=== PATIENT | male | born 2000 | race Two or more races ===

== ENCOUNTER 2024-11-21 07:44 | Emergency (ER) | payer MEDICAID, SELFPAY ==
[2024-11-21 07:52] VITALS: BP 125/83; PULSE 71; RESP 16; TEMP 36.6; O2SAT 97; BMI 23.5
--- NOTE | 2024-11-21 07:59 | EDNOTE_ITS ---
<Statement entered by Anna Gale MD - 11/22/24 12:05> As co-signing physician, I was present and available for consult prn. I concur with the plan and care as documented by the midlevel provider. ED Dental RME/HPI General Chief complaint: Dental/Oral/Throat Stated complaint: feels like throat is swollen, trouble swallowing Time Seen by Provider: 11/21/24 07:46 Arrival date/time: 11/21/24 07:44 24-year-old male with no significant medical problems presents emergency department complaints of throat swelling patient reports pain with swallowing patient for symptoms ongoing since this morning patient reports no fever nausea or vomiting Limitations: no limitations Related Data Previous Rx's ?Medication ?Instructions ?Recorded ibuprofen 600 mg tablet 600 mg PO Q6H #30 tabs 02/13 amoxicillin 875 mg-potassium 1 tab PO BID 7 days #14 t abs 11/21/24 clavulanate 125 mg tablet ibuprofen 600 mg tablet 600 mg PO Q6H #30 tabs 11/21 prednisone 10 mg tablet 30 mg (3 x 10 mg) PO BID 3 d ays 11/21/24 #18 tabs Allergies Allergy/AdvReac Type Severity Reaction Status Date / Time No Known Allergies Allergy Unverified 02/14/24 16:36 Review of Systems Review of Systems Systems Reviewed: All systems reviewed, normal except as documented Constitutional Constitutional: Reports system reviewed and no additional complaints, except as documented, Denies fever(s) and Denies headache(s) Eyes Eyes: Reports system reviewed and no additional complaints, except as documented and Denies blurry vision ENT Ears, Nose, Mouth, and Throat: Reports system reviewed and no additional complaints, except as documented, Denies headache(s), Denies nasal congestion, Denies nasal discharge, Reports sore throat and Reports throat swelling Cardiovascular Cardiovascular: Reports system reviewed and no additional complaints, except as documented, Denies chest pain and Denies dyspnea Respiratory Respiratory: Reports system reviewed and no additional complaints, except as documented, Denies chest congestion, Denies cough and Denies dyspnea Gastrointestinal Gastrointestinal: Reports system reviewed and no additional complaints, except as documented and Denies abdominal pain Integumentary/Breasts Skin/Breast: Reports system reviewed and no additional complaints, except as documented and Denies rash Neurologic Neurologic: Reports system reviewed and no additional complaints, except as documented, Reports as per HPI and Denies headache(s) Allergic/Immunologic Allergic/Immunologic: Reports throat swelling Past Medical History Past Medical History NEUROLOGIC: Negative Neurological Disorders Social History SMOKING STATUS: Current every day smoker ED Exam General Limitations: Present no limitations General appearance: Present alert and in no apparent distress Head Head exam: Present atraumatic Eye Eye exam: Present normal appearance, PERRL and EOMI ENT ENT exam: Present mucous membranes moist Expanded ENT Exam Throat exam: Present tonsillar erythema and other (Uvula swelling); Absent tonsillomegaly, tonsillar exudate, R peritonsillar mass, L peritonsillar mass or muffled voice Neck Neck exam: Present normal inspection, full ROM and trachea midline Chest Chest inspection: Present normal inspection and symmetric chest wall rise Respiratory Respiratory exam: Present normal lung sounds bilaterally Cardiovascular Cardiovascular exam: Present regular rate, normal rhythm and normal heart sounds Abdominal Exam Abdominal exam: Present soft and normal bowel sounds Extremities Exam Extremities exam: Present normal inspection and full ROM Back Exam Back exam: Present normal inspection and full ROM Neurological Exam Neurological exam: Present alert, oriented X3 and CN II-XII intact Psychiatric Psychiatric exam: Present normal affect and normal mood Skin Skin exam: Present warm, dry, intact and normal color Course Quality Measures none Orders Category Date Time Status Dexamethasone Inj [Decadron Inj] Med 11/21/24 07:57 Discontinued 10 mg PO X1 ONE Vital Signs Vital signs: Vital Signs Temperature 97.8 F 11/21/24 07:52 Pulse Rate 71 11/21/24 07:52 Respiratory Rate 16 11/21/24 07:52 Blood Pressure 125/83 11/21/24 07:52 Pulse Oximetry (%) 97 11/21/24 07:52 Oxygen Delivery Method Room Air 11/21/24 07:52 O2 saturation 97% room air WNL Dental / Oral MDM Narrative MDM Narrative:: 24-year-old male with no significant medical problems presents emergency department complaints of throat swelling patient reports pain with swallowing patient for symptoms ongoing since this morning patient reports no fever nausea or vomiting On exam patient well-appearing patient does not appear ill or toxic patient does not appear to be acute distress On exam symptoms consistent with uvulitis Patient given dexamethasone Patient discharged with antibiotics and pain medication Patient no difficulty swallowing or breathing hemodynamically stable Patient discharged home in no distress to follow-up with primary care doctor in the next 24 to 48 hours and for any worsening symptoms to return to the ER immediately Patient data External records reviewed:: [facility] previous records Clinical information provided by:: patient Social determinants that could affect healthcare access:: none Patient has the following chronic illnesses:: None How is presenting disease/condition affected by chronic disease/condition?: no chronic disease Evaluation data The following diagnostics were reviewed and interpreted by me:: other (specify) (N/A) Lab and/or radiology exams considered but not ordered:: N/A Interpretation Summary: Consider not ordered Medications / Prescriptions Medications or Prescriptions considered but not ordered:: Given Medication administrations:: Medication Administration History Discontinued Medications Dexamethasone Sodium Phosphate (Dexamethasone Sod Phos Inj 10 Mg/Ml Vial) 10 mg PO X1 ONE Stop: 11/21/24 07:58 Last Admin: 11/21/24 08:06 Dose: 10 mg Documented By: SM Given Consultations Consultation(s) initiated? (list below): No Diagnosis Dental Differential Diagnosis: gingival abscess and other (Viral pharyngitis, streptococcal pharyngitis, uvulitis) Most likely diagnosis given after review of the tests above:: Pharyngitis Admission Indicated Admission indicated?: not indicated Admission Request Was there a request for admission?: No Disposition Plan Disposition Plan: Discharge Discharge Attestation Discharge Attestation: The patient and all family members were given an opportunity to ask questions and understood the discharge instructions. Discharge instructions specifically effects, indications for sooner follow up or return to the emergency department, and the expected course of current diagnosis. Patient condition: Stable Discharge Plan Plan Patient Disposition: HOME (Self Care) Disposition Comment: Stable Prescriptions/Referrals Prescriptions/Med Rec: New prednisone 10 mg tablet 30 mg PO BID 3 Days Qty: 18 0RF ibuprofen 600 mg tablet 600 mg PO Q6H Qty: 30 0RF amoxicillin-pot clavulanate 875-125 mg tablet 1 tab PO BID 7 Days Qty: 14 0RF No Action ibuprofen 600 mg tablet 600 mg PO Q6H Qty: 30 0RF Problem List Clinical Impression: Pharyngitis Patient/Caregiver Discharge Instructions Education Materials: Self-Care for Sore Throats Additional Instructions: Please follow up with your primary care doctor in the next 24-48hrs for any worsening symptoms return here immediately Print Language: P[place]in[place] Stand Alone Forms: Ale Award Info., Work/School Release, Patient Portal Info Letter PA/PASSPORT SUPPORT ASSOCIATE Supervising Physician PA/PASSPORT SUPPORT ASSOCIATE Supervising Physician: Dr. GALE
[2024-11-21] MEDS: DEXAMETHASONE SOD PHOS INJ 10 MG/ML VIAL PO (08:06)
== END 2024-11-21 08:10 | disposition home or self-care (01) ==
PROVIDERS: Emergency Provider Emergency Medicine
DX: J02.9 Acute pharyngitis, unspecified (principal)
CPT/HCPCS: 99282; J1100

== ENCOUNTER 2025-05-11 04:34 | Emergency (ER) | payer MEDICAID, SELFPAY ==
[2025-05-11 04:35] VITALS: BMI 19.5
[2025-05-11 05:36] VITALS: BP 142/92; PULSE 56; RESP 16; TEMP 36.7; O2SAT 98
--- NOTE | 2025-05-11 06:18 | PD.EDDENTL ---
ED Dental RME/HPI General Chief complaint: Dental/Oral/Throat Stated complaint: UPPER TOOTHACHE Time Seen by Provider: 05/11/25 06:14 Arrival date/time: 05/11/25 04:34 24-year-old male presents to the Emergency Department today for complaint of toothache patient reports left upper tooth pain ongoing x 2 to 3 days. Patient reports no fever nausea or vomiting no difficulty swallowing or breathing Limitations: no limitations Related Data Previous Rx's ?Medication ?Instructions ?Recorded ibuprofen 600 mg tablet 600 mg PO Q6H #30 tabs 02/14/24 ibuprofen 600 mg tablet 600 mg PO Q6H #30 tabs 11/21/24 amoxicillin 875 mg-potassium 1 tab PO BID 10 days #20 tabs 05/11/25 clavulanate 125 mg tablet ibuprofen 600 mg tablet 600 mg PO Q6H #30 tabs 05/11/25 Allergies Allergy/AdvReac Type Severity Reaction Status Date / Time No Known Allergies Allergy Unverified 02/14/24 16:36 Review of Systems Review of Systems Systems Reviewed: All systems reviewed, normal except as documented Constitutional Constitutional: Reports system reviewed and no additional complaints, except as documented, Denies fever(s) and Denies headache(s) Eyes Eyes: Reports system reviewed and no additional complaints, except as documented and Denies blurry vision ENT Ears, Nose, Mouth, and Throat: Reports system reviewed and no additional complaints, except as documented, Reports dental pain, Denies headache(s), Denies nasal congestion and Denies nasal discharge Cardiovascular Cardiovascular: Reports system reviewed and no additional complaints, except as documented, Denies chest pain and Denies dyspnea Respiratory Respiratory: Reports system reviewed and no additional complaints, except as documented, Denies chest congestion, Denies cough and Denies dyspnea Gastrointestinal Gastrointestinal: Reports system reviewed and no additional complaints, except as documented and Denies abdominal pain Integumentary/Breasts Skin/Breast: Reports system reviewed and no additional complaints, except as documented and Denies rash Neurologic Neurologic: Reports system reviewed and no additional complaints, except as documented, Reports as per HPI and Denies headache(s) Past Medical History Past Medical History NEUROLOGIC: Negative Neurological Disorders Social History SMOKING STATUS: Never smoker ED Exam General Limitations: Present no limitations General appearance: Present alert and in no apparent distress Head Head exam: Present atraumatic Eye Eye exam: Present normal appearance, PERRL and EOMI ENT ENT exam: Present mucous membranes moist and other (Dental pain) Neck Neck exam: Present normal inspection, full ROM and trachea midline Chest Chest inspection: Present normal inspection and symmetric chest wall rise Respiratory Respiratory exam: Present normal lung sounds bilaterally Cardiovascular Cardiovascular exam: Present regular rate, normal rhythm and normal heart sounds Abdominal Exam Abdominal exam: Present soft and normal bowel sounds Extremities Exam Extremities exam: Present normal inspection and full ROM Back Exam Back exam: Present normal inspection and full ROM Neurological Exam Neurological exam: Present alert, oriented X3 and CN II-XII intact Psychiatric Psychiatric exam: Present normal affect and normal mood Skin Skin exam: Present warm, dry, intact and normal color Course Quality Measures none Vital Signs Vital signs: Vital Signs Temperature 98.0 F 05/11/25 05:36 Pulse Rate 56 L 05/11/25 05:36 Respiratory Rate 16 05/11/25 05:36 Blood Pressure 142/92 H 05/11/25 05:36 Pulse Oximetry (%) 98 05/11/25 05:36 Oxygen Delivery Method Room Air 05/11/25 05:36 O2 saturation 98% room air within normal limits Dental / Oral MDM Narrative MDM Narrative:: 24-year-old male presents to the Emergency Department today for complaint of toothache patient reports left upper tooth pain ongoing x 2 to 3 days. Patient reports no fever nausea or vomiting no difficulty swallowing or breathing On exam patient well-appearing patient does not appear ill or toxic no acute distress On exam patient has dental pain without evidence of dental abscess patient does have a fractured tooth Patient has no significant swelling patient patient with a course of antibiotics and pain medication instructed follow-up with dentist in the next 24 to 48 hours for worsening symptoms return immediately Patient data External records reviewed:: [facility] previous records Clinical information provided by:: patient Social determinants that could affect healthcare access:: none Patient has the following chronic illnesses:: None How is presenting disease/condition affected by chronic disease/condition?: no chronic disease Evaluation data The following diagnostics were reviewed and interpreted by me:: other (specify) (N/A) Lab and/or radiology exams considered but not ordered:: Considered not indicated Interpretation Summary: N/A Medications / Prescriptions Medications or Prescriptions considered but not ordered:: Given Medication administrations:: Given Consultations Consultation(s) initiated? (list below): No Diagnosis Dental Differential Diagnosis: gingival abscess, dental caries, toothache and dental abscess Most likely diagnosis given after review of the tests above:: Dental abscess Admission Indicated Admission indicated?: not indicated Admission Request Was there a request for admission?: No Disposition Plan Disposition Plan: Discharge Discharge Attestation Discharge Attestation: The patient and all family members were given an opportunity to ask questions and understood the discharge instructions. Discharge instructions specifically effects, indications for sooner follow up or return to the emergency department, and the expected course of current diagnosis. Patient condition: Stable Discharge Plan Plan Patient Disposition: HOME (Self Care) Discharge Disposition comment: Stable Prescriptions/Referrals Prescriptions/Med Rec: New ibuprofen 600 mg tablet 600 mg PO Q6H Qty: 30 0RF amoxicillin-pot clavulanate 875-125 mg tablet 1 tab PO BID 10 Days Qty: 20 0RF No Action ibuprofen 600 mg tablet 600 mg PO Q6H Qty: 30 0RF ibuprofen 600 mg tablet 600 mg PO Q6H Qty: 30 0RF Referrals: Temporary Provider,ED [Primary Care Provider] - In 1 week Problem List Clinical Impression: Toothache Patient/Caregiver Discharge Instructions Education Materials: ED Dental Pain Additional Instructions: Please follow up with your primary care doctor in the next 24-48hrs for any worsening symptoms return here immediately Print Language: Iraqi Stand Alone Forms: Ale Award Info., Patient Portal Info Letter JOSAFAT/YARELY Supervising Physician JOSAFAT/YARELY Supervising Physician: dr patel
== END 2025-05-11 06:51 | disposition home or self-care (01) ==
LOC: SERX 07:02
PROVIDERS: Emergency Provider Emergency Medicine
DX: K08.89 Other specified disorders of teeth and supporting structures (principal)
CPT/HCPCS: 99281